=== PATIENT | female | born 1980 | race Caucasian/White ===

== ENCOUNTER 2016-10-03 08:23 | Emergency (ER) | payer BC ==
[2016-10-03] MEDS ORDERED: Ketorolac 30 MG/ML SDV IVPUSH ONE (08:33)
[2016-10-03] MEDS ORDERED: Ondansetron 4 MG/2 ML SDV IVPUSH ONE (08:33)
[2016-10-03] MEDS ORDERED: HYDROmorphone 2 MG/ML Syringe IVPUSH ONE (08:33)
[2016-10-03] MEDS ORDERED: Sodium Chloride 0.9% 1,000 ML IV ONE (08:33)
[2016-10-03] MEDS ORDERED: Tamsulosin 0.4 MG Cap.ER PO ONE (08:34)
--- NOTE | 2016-10-03 08:35 | EDM.PDOC ---
ED HPI GENERAL MEDICAL PROBLEM - General Chief Complaint: Genitourinary Problem Stated Complaint: LOWER BACK PAIN Time Seen by Provider: 10/03/16 08:32 - History of Present Illness INITIAL COMMENTS - FREE TEXT/NARRATIVE: HISTORY AND PHYSICAL: History of present illness: Patient 36-year-old white female concern of acute left flank pain similar to prior episode of urolithiasis years ago this awoke her from sleep she had mild nausea no vomiting no fever chills trauma or other complaints Review of systems: As per history of present illness and below otherwise all systems reviewed and negative. Past medical history: As per history of present illness and as reviewed below otherwise noncontributory. Surgical history: As per history of present illness and as reviewed below otherwise noncontributory. Social history: No reported history of drug or alcohol abuse. Family history: As per history of present illness and as reviewed below otherwise noncontributory. Physical exam: HEENT: Atraumatic, normocephalic, pupils reactive, negative for conjunctival pallor or scleral icterus, mucous membranes moist, throat clear, neck supple, nontender, trachea midline. Lungs: Clear to auscultation, breath sounds equal bilaterally, chest nontender. Heart: S1S2, regular, negative for clicks, rubs, or JVD. Abdomen: Soft, nondistended, nontender. Negative for masses or hepatosplenomegaly. Left-sided costovertebral tenderness. Pelvis: Stable nontender. Genitourinary: Deferred. Rectal: Deferred. Extremities: Atraumatic, negative for cords or calf pain. Neurovascular unremarkable. Neuro: Awake, alert, oriented. Cranial nerves II through XII unremarkable. Cerebellum unremarkable. Motor and sensory unremarkable throughout. Exam nonfocal. Diagnostics: CBC CMP UA urine culture CT abdomen and pelvis Therapeutics: Normal saline 1 L bolus Dilaudid 1 mg IV Zofran 4 mg IV Toradol 30 mg IV Flomax 0.4 mg by mouth Impression: #1 acute left CVA tenderness #2 history of urolithiasis Definitive disposition and diagnosis as appropriate pending reevaluation and review of above. Lower Flank Pain Score (Numeric/FACES): 10 - Related Data Allergies Allergy/AdvReac Type Severity Reaction Status Date / Time doxycycline Allergy thrush Verified 10/03/16 08:30 Sulfa (Sulfonamide Allergy Rash Verified 10/03/16 08:30 Antibiotics) Cats Allergy Cough Uncoded 10/03/16 08:30 latex sensitive Allergy Rash Uncoded 10/03/16 08:30 Home Meds: Home Meds . [No Known Home Meds] 10/03/16 [History] Past Medical History - Past Health History Medical/Surgical History: Denies Medical/Surgical History HEENT History: Reports: Allergic Rhinitis Other HEENT History: wears contacts or glasses, seasonal allergies Cardiovascular History: Reports: None Respiratory History: Reports: Asthma Other Respiratory History: seasonal asthma, does not require inhaler Gastrointestinal History: Reports: None Other Gastrointestinal History: Heartburn, indestion and burning abdomen right to middle side Genitourinary History: Reports: Pyelonephritis, Renal Calculus Other Genitourinary History: recent antibiotic treatment for UTI 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, Other OB/BYN History: Painful Menses Other Musculoskeletal History: Low back pain, hx: fracturing L Ankle Neurological History: Reports: Migraines Other Neuro History: Headaches/migraines Psychiatric History: Reports: None Endocrine/Metabolic History: Reports: Obesity/BMI 30+ Hematologic History: Reports: None Immunologic History: Reports: None Oncologic (Cancer) History: Reports: None Dermatologic History: Reports: None - Infectious Disease History Infectious Disease History: Reports: None - Past Surgical History Head Surgeries/Procedures: Reports: None HEENT Surgical History: Reports: Oral Surgery Female Surgical History: Reports: Hysterectomy Social & Family History - Family History Family Medical History: Noncontributory HEENT: Reports: Cataract Cardiac: Reports: Hypertension, [place] Respiratory: Reports: Asthma GI: Reports: Cholelithiasis : Reports: Dialysis, Renal Disease/Insufficiency OBGYN: Reports: Musculoskeletal: Reports: None Neurological: Reports: None Psychiatric: Reports: None Endocrine/Metabolic: Reports: Diabetes, type II, IDDM Hematologic: Reports: None Immunologic: Reports: None Dermatologic: Reports: None Oncologic: Reports: Liver - Tobacco Use Smoking Status *Q: Never Smoker Years of Tobacco use: 6 Used Tobacco, but Quit: Yes Second Hand Smoke Exposure: No - Caffeine Use Caffeine Use: Reports: Coffee, Soda Caffeine Use Comment: rarely - Alcohol Use Days Per Week of Alcohol Use: 1 Number of Drinks Per Day: 0 Total Drinks Per Week: 0 - Recreational Drug Use Recreational Drug Use: No Drug Use in Last 12 Months: No ED ROS GENERAL - Review of Systems Review Of Systems: ROS reveals no pertinent complaints other than HPI. ED EXAM, GENERAL - Physical Exam Exam: See Below (The dictation) Course - Vital Signs Last Recorded V/S: Last Vital Signs Temp 36.1 C 10/03/16 08:27 Pulse 58 L 10/03/16 09:50 Resp 18 10/03/16 09:50 BP 122/69 10/03/16 09:50 Pulse Ox 97 10/03/16 09:50 - Orders/Labs/Meds Orders: Active Orders 24 hr Category Date Time Status Abdomen Pelvis wo Cont [CT] Stat Exams 10/03/16 08:33 Ordered CULTURE URINE [RM] Stat Lab 10/03/16 08:32 Uncollected Labs: Laboratory Tests 10/03/16 10/03/16 10/03/16 Range/Units 08:42 08:42 09:20 WBC 12.81 H (4.0-11.0) K/uL RBC 4.44 (4.30-5.90) M/uL Hgb 13.4 (12.0-16.0) g/dL Hct 39.3 (36.0-46.0) % MCV 88.5 (80.0-98.0) fL MCH 30.2 (27.0-32.0) pg MCHC 34.1 (31.0-37.0) g/dL RDW Std Deviation 42.6 (28.0-62.0) fl RDW Coeff of Bebeto 13 (11.0-15.0) % Plt Count 218 (150-400) K/uL MPV 10.50 (7.40-12.00) fL Neut % (Auto) 76.1 (48.0-80.0) % Lymph % (Auto) 15.0 L (16.0-40.0) % Mower % (Auto) 5.4 (0.0-15.0) % Eos % (Auto) 2.9 (0.0-7.0) % Baso % (Auto) 0.6 (0.0-1.5) % Neut # (Auto) 9.8 H (1.4-5.7) K/uL Lymph # (Auto) 1.9 (0.6-2.4) K/uL Mower # (Auto) 0.7 (0.0-0.8) K/uL Eos # (Auto) 0.4 (0.0-0.7) K/uL Baso # (Auto) 0.1 (0.0-0.1) K/uL Nucleated RBC % 0.0 /100WBC Nucleated RBCs # 0 K/uL Sodium 140 (136-146) mmol/L Potassium 5.2 H (3.5-5.1) mmol/L Chloride 107 (98-110) mmol/L Carbon Dioxide 20 L (21-31) mmol/L BUN 19 (6.0-23.0) mg/dL Creatinine 1.1 (0.6-1.5) mg/dL Est Cr Clr Drug Dosing 64.84 mL/min Estimated GFR (MDRD) 56.9 ml/min Glucose 95 (60-110) mg/dL Calcium 9.2 (8.8-10.8) mg/dL Total Bilirubin 0.3 (0.1-1.5) mg/dL AST 25 (5-40) IU/L ALT 26 (8-54) IU/L Alkaline Phosphatase 79 (40-150) Total Protein 7.3 (6.0-8.0) g/dL Albumin 4.5 (3.5-5.0) g/dL Globulin 2.8 (2.0-3.5) g/dL Albumin/Globulin Ratio 1.6 (1.3-2.8) Urine Color YELLOW Urine Appearance SLT CLOUDY Urine pH 6.0 (5.0-8.0) Ur Specific Polk 1.020 (1.001-1.035) Urine Protein NEGATIVE (NEGATIVE) mg/dL Urine Glucose (UA) NEGATIVE (NEGATIVE) mg/dL Urine Ketones NEGATIVE (NEGATIVE) mg/dL Urine Occult Blood MODERATE (NEGATIVE) Urine Nitrite NEGATIVE (NEGATIVE) Urine Bilirubin NEGATIVE (NEGATIVE) Urine Urobilinogen 0.2 (<2.0) EU/dL Ur Leukocyte Esterase NEGATIVE (NEGATIVE) Urine RBC 3-6 (0-2/HPF) Urine WBC 0-2 (0-5/HPF) Ur Epithelial Cells RARE (NONE-FEW) Amorphous Sediment RARE (NEGATIVE) Urine Bacteria FEW (NEGATIVE) Meds: Medications Discontinued Medications Generic Name Dose Route Start Last Admin Trade Name Freq PRN Reason Stop Dose Admin Hydromorphone HCl 1 mg 10/03/16 08:33 10/03/16 08:51 Dilaudid IVPUSH 10/03/16 08:34 1 mg ONETIME ONE Administration Sodium Chloride 1,000 mls @ 999 mls/hr 10/03/16 08:33 10/03/16 08:51 Normal Saline IV 10/03/16 09:33 999 mls/hr STAT ONE Administration Ketorolac Tromethamine 30 mg 10/03/16 08:33 10/03/16 08:52 Toradol IVPUSH 10/03/16 08:34 30 mg ONETIME ONE Administration Ondansetron HCl 4 mg 10/03/16 08:33 10/03/16 08:51 Zofran IVPUSH 10/03/16 08:34 4 mg ONETIME ONE Administration Tamsulosin HCl 0.4 mg 10/03/16 08:34 10/03/16 08:52 Flomax PO 10/03/16 08:35 0.4 mg ONETIME ONE Administration Departure - Departure Time of Disposition: 09:51 Disposition: Home, Self-Care 01 Condition: good Clinical Impression: Ureterolithiasis - Discharge Information Forms: ED Department Discharge Additional Instructions: The following information is given to patients seen in the emergency department who are being discharged to home. This information is to outline your options for follow-up care. We provide all patients seen in our emergency department with a follow-up referral. The need for follow-up, as well as the timing and circumstances, are variable depending upon the specifics of your emergency department visit. If you don't have a primary care physician on staff, we will provide you with a referral. We always advise you to contact your personal physician following an emergency department visit to inform them of the circumstance of the visit and for follow-up with them and/or the need for any referrals to a consulting specialist. The emergency department will also refer you to a specialist when appropriate. This referral assures that you have the opportunity for followup care with a specialist. All of these measure are taken in an effort to provide you with optimal care, which includes your followup. Under all circumstances we always encourage you to contact your private physician who remains a resource for coordinating your care. When calling for followup care, please make the office aware that this follow-up is from your recent emergency room visit. If for any reason you are refused follow-up, please contact the [facility] emergency department at and asked to speak to the emergency department charge nurse. [facility] Special[facility] Care - Urology [address] [place] [id number] Hydrocodone Zofran Flomax as prescribed push fluids follow up primary medical doctor/urology above return as needed as discussed - My Orders Last 24 Hours: My Active Orders 10/03/16 08:32 CULTURE URINE [RM] Stat 10/03/16 08:33 Abdomen Pelvis wo Cont [CT] Stat - Assessment/Plan Last 24 Hours: My Active Orders 10/03/16 08:32 CULTURE URINE [RM] Stat 10/03/16 08:33 Abdomen Pelvis wo Cont [CT] Stat
[2016-10-03 10:15] VITALS: BP 120/80
--- NOTE | 2016-10-03 11:14 | CT ---
EXAM DATE: 10/03/16 PATIENT'S AGE: 36 Patient: JUAQUIN KERR Facility: [place], [place] Site . Site : 1980 Study: CT Abdomen/Pelvis [id number]/1/2017 9:23:08 AM Ordering Physician: Jordan Fan Final Report: INDICATION: Left flank pain that extends to the left front with associated left lower quadrant pain since 4 a.m. Technique: CT abdomen and pelvis without oral IV contrast. Comparison: Prior CT 07/04/2014 not available for comparison. Findings: Small sclerotic lesions in the skeleton consistent with small bone islands. 3 mm stone in the left UVJ resulting in mild hydronephrosis and ureteral dilatation as well as minimal perinephric and to lesser extent periureteral soft tissue stranding/edema consistent with this stone being partially obstructing. The left kidney is mildly edematous and larger than the right. Few tiny bilateral renal stones. Hysterectomy. The appendix is normal. Clusters of small to slightly prominent mesenteric lymph nodes should be reactive. Remainder negative. Impression: 1. 3 mm partially obstructing stone in the left UVJ results in mild hydronephrosis and other signs of ureteral obstruction as described above. 2. Very tiny bilateral renal calculi. 3. Hysterectomy. Other findings as above. Please note that all CT scans at this facility use dose modulation, iterative reconstruction, and/or weight-based dosing when appropriate to reduce radiation dose to as low as reasonably achievable. Dictated by Norman Aguilar MD @ Oct 03 2016 9:35AM (Electronic Signature) Report Signed by Proxy. MTDD
== END 2016-10-03 10:14 | disposition home or self-care (01) ==
LOC: MW.ED 08:23
DX: N13.2 Hydronephrosis with renal and ureteral calculous obstruction (principal); Z88.1 Allergy status to other antibiotic agents; Z88.2 Allergy status to sulfonamides; Z91.040 Latex allergy status; E66.9 Obesity, unspecified; Z90.710 Acquired absence of both cervix and uterus; Z87.891 Personal history of nicotine dependence
CPT/HCPCS: 36415; 74176; 80053; 81001; 85025; 87086; 96361; 96374; 96375; 99284; A9270; J1170; J1885; J2405; J7040

== ENCOUNTER 2017-03-26 15:54 | Emergency (ER) | payer BC ==
--- NOTE | 2017-03-26 16:11 | EDM.PDOC ---
ED HPI GENERAL MEDICAL PROBLEM - General Chief Complaint: Headache Stated Complaint: PAIN IN HEAD AND NECK Time Seen by Provider: 03/26/17 16:10 Source of Information: Reports: Patient History Limitations: Reports: No Limitations - History of Present Illness INITIAL COMMENTS - FREE TEXT/NARRATIVE: HISTORY AND PHYSICAL: [] 36-year-old female presenting with right-sided head pain. She has history of migraines but has never had a headache like this previously. She has pain rating down the right side of her neck to the shoulder. History of Present Illness: []This started last night while sitting on the couch no reported injury Review of Systems: As per history of present illness and below otherwise all systems reviewed and negative. Past medical history: As per history of present illness and as reviewed below otherwise noncontributory. Surgical history: As per history of present illness and as reviewed below otherwise noncontributory. Social history: No reported history of drug or alcohol abuse. Family history: As per history of present illness and as reviewed below otherwise noncontributory. Physical exam: Alert and oriented answering questions appropriately in full sentences without any shortness of breath. No neurological deficits were apparent. Slightly photophobic. HEENT: Atraumatic, normocehpalic, pupils reactive, negative for conjunctival pallor or scleral icterus, mucous membranes moist, throat clear, neck supple, nontender, trachea midline. Lungs: Clear to auscultation, breath sounds equal bilaterally, chest non tender. Heart: S1S2, regular, negative for clicks, rubs, or JVD. Abdomen: Soft, nondistended, nontender. Negative for masses or hepatossplenmegaly. Negative for costovertebral tenderness. Pelvis: Stable nontender. Genitourinary: Deferred. Rectal: Deferred Extremities: Atraumatic, negative for cords or calf pain. Neurovascular unremarkable. Neuro: Awake, alert, oriented. Cranial nerves II through XII unremarkable. Cerebellum unremarkable. Motor and sensory unremarkable throughout. Exam nonfocal. CT report shows small amount of fluid to the right mastoid. Discussed case with Dr. Ortega, who kindly reexamined the patient tenderness to the right mastoid area. No edema, nausea or vomiting. Have discussed this with the patient and her . Explaining, because of the small amount of fluid at the right mastoid, would like her to follow-up with the ENT specialist. Both the patient and her are agreeable to this recommended course of action Diagnostics: [Head CT] Therapeutics: [1 L fluid] Impression: [Cephalgia Headache] Plan: [Augmentin 875 twice a day 7 days Follow-up with ENT specialist referral has been made to Dr. Pelletier Any worsening of condition return to the emergency room for further evaluation.] Definitive disposition and diagnosis as appropriate pending reevaluation and review of above. Onset: Today, Sudden Location: Reports: Head Severity: Moderate head,neck Pain Score (Numeric/FACES): 7 - Related Data Allergies Allergy/AdvReac Type Severity Reaction Status Date / Time azithromycin [From Zithromax] Allergy Rash Verified 03/26/17 16:12 doxycycline Allergy thrush Verified 03/26/17 16:11 Sulfa (Sulfonamide Allergy Rash Verified 03/26/17 16:11 Antibiotics) Cats Allergy Cough Uncoded 03/26/17 16:11 latex sensitive Allergy Rash Uncoded 03/26/17 16:11 Home Meds: Home Meds Amoxicillin/Potassium Clav [Augmentin 875-125 Tablet] 1 each PO BID #14 tablet 03/26/17 [Rx] Estrogens, Conjugated [Premarin] 0.625 mg PO DAILY 03/26/17 [History] Past Medical History - Past Health History Medical/Surgical History: Denies Medical/Surgical History HEENT History: Reports: Allergic Rhinitis Other HEENT History: wears contacts or glasses, seasonal allergies Cardiovascular History: Reports: None Respiratory History: Reports: Asthma Other Respiratory History: seasonal asthma, does not require inhaler Gastrointestinal History: Reports: None Other Gastrointestinal History: Heartburn, indestion and burning abdomen right to middle side Genitourinary History: Reports: Pyelonephritis, Renal Calculus Other Genitourinary History: recent antibiotic treatment for UTI 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, Other OB/BYN History: Painful Menses Other Musculoskeletal History: Low back pain, hx: fracturing L Ankle Neurological History: Reports: Migraines Other Neuro History: Headaches/migraines Psychiatric History: Reports: None Endocrine/Metabolic History: Reports: Obesity/BMI 30+ Hematologic History: Reports: None Immunologic History: Reports: None Oncologic (Cancer) History: Reports: None Dermatologic History: Reports: None - Infectious Disease History Infectious Disease History: Reports: None - Past Surgical History Head Surgeries/Procedures: Reports: None HEENT Surgical History: Reports: Oral Surgery Female Surgical History: Reports: Hysterectomy Social & Family History - Family History Family Medical History: Noncontributory HEENT: Reports: Cataract Cardiac: Reports: Hypertension, [place] Respiratory: Reports: Asthma GI: Reports: Cholelithiasis : Reports: Dialysis, Renal Disease/Insufficiency OBGYN: Reports: Musculoskeletal: Reports: None Neurological: Reports: None Psychiatric: Reports: None Endocrine/Metabolic: Reports: Diabetes, type II, IDDM Hematologic: Reports: None Immunologic: Reports: None Dermatologic: Reports: None Oncologic: Reports: Liver - Tobacco Use Smoking Status *Q: Never Smoker Years of Tobacco use: 6 Used Tobacco, but Quit: Yes Second Hand Smoke Exposure: No - Caffeine Use Caffeine Use: Reports: Coffee, Soda Caffeine Use Comment: rarely - Alcohol Use Days Per Week of Alcohol Use: 1 Number of Drinks Per Day: 0 Total Drinks Per Week: 0 - Recreational Drug Use Recreational Drug Use: No Drug Use in Last 12 Months: No ED ROS GENERAL - Review of Systems Review Of Systems: ROS reveals no pertinent complaints other than HPI. - Physical Exam Exam: See Below (See dictation) Course - Vital Signs Last Recorded V/S: Last Vital Signs Temp 36.1 C 03/26/17 16:03 Pulse 65 03/26/17 16:03 Resp 16 03/26/17 16:03 BP 139/84 03/26/17 16:03 Pulse Ox 99 03/26/17 16:03 - Orders/Labs/Meds Orders: Active Orders 24 hr Category Date Time Status Head wo Cont [CT] Stat Exams 03/26/17 16:11 Taken Sodium Chloride 0.9% [Saline Flush] Med 03/26/17 16:12 Active 10 ml FLUSH ASDIRECTED PRN Sodium Chloride 0.9% [Saline Flush] Med 03/26/17 16:12 Active 2.5 ml FLUSH ASDIRECTED PRN Saline Lock Insert [OM.PC] Stat Oth 03/26/17 16:12 Ordered Medication Orders Sodium Chloride (Saline Flush) 10 ml FLUSH ASDIRECTED PRN PRN Reason: Keep Vein Open Last Admin: 03/26/17 16:33 Dose: 10 ml Sodium Chloride (Saline Flush) 2.5 ml FLUSH ASDIRECTED PRN PRN Reason: Keep Vein Open Last Admin: 03/26/17 16:34 Dose: 2.5 ml Meds: Medications Generic Name Dose Route Start Last Admin Trade Name Freq PRN Reason Stop Dose Admin Sodium Chloride 10 ml 03/26/17 16:12 03/26/17 16:33 Saline Flush FLUSH 10 ml ASDIRECTED PRN Administration Keep Vein Open Sodium Chloride 2.5 ml 03/26/17 16:12 03/26/17 16:34 Saline Flush FLUSH 2.5 ml ASDIRECTED PRN Administration Keep Vein Open Discontinued Medications Generic Name Dose Route Start Last Admin Trade Name Freq PRN Reason Stop Dose Admin Diphenhydramine HCl 25 mg 03/26/17 17:37 03/26/17 17:58 Benadryl IVPUSH 03/26/17 17:38 25 mg ONETIME ONE Administration Sodium Chloride 1,000 mls @ 999 mls/hr 03/26/17 16:12 03/26/17 16:34 Normal Saline IV 03/26/17 17:12 999 mls/hr STAT ONE Administration Ketorolac Tromethamine 30 mg 03/26/17 17:36 03/26/17 17:58 Toradol IVPUSH 03/26/17 17:37 30 mg ONETIME ONE Administration Prochlorperazine Edisylate 10 mg 03/26/17 17:37 03/26/17 17:58 Compazine IM 03/26/17 17:38 10 mg ONETIME ONE Administration Departure - Departure Time of Disposition: 18:28 Disposition: Home, Self-Care 01 Condition: Good Clinical Impression: Sinusitis Headache Qualifiers: Headache type: unspecified Headache chronicity pattern: acute headache Intractability: not intractable Qualified Code(s): R51 - Headache - Discharge Information Prescriptions: Amoxicillin/Potassium Clav [Augmentin 875-125 Tablet] 1 each PO BID #14 tablet Referrals: PCP,None [Primary Care Provider] - Forms: ED Department Discharge Additional Instructions: The following information is given to patients seen in the emergency department who are being discharged to home. This information is to outline your options for follow-up care. We provide all patients seen in our emergency department with a follow-up referral. The need for follow-up, as well as the timing and circumstances, are variable depending upon the specifics of your emergency department visit. If you don't have a primary care physician on staff, we will provide you with a referral. We always advise you to contact your personal physician following an emergency department visit to inform them of the circumstance of the visit and for follow-up with them and/or the need for any referrals to a consulting specialist. The emergency department will also refer you to a specialist when appropriate. This referral assures that you have the opportunity for followup care with a specialist. All of these measure are taken in an effort to provide you with optimal care, which includes your followup. Under all circumstances we always encourage you to contact your private physician who remains a resource for coordinating your care. When calling for followup care, please make the office aware that this follow-up is from your recent emergency room visit. If for any reason you are refused follow-up, please contact the [facility] emergency department at and asked to speak to the emergency department charge nurse. Augmentin 875 one twice a day 7 days has been prescribed for you per [facility] Follow-up with ENT specialist Dr. Pelletier [facility] [address] [place] [phone] Phone: If worsening of symptoms or occurs over this holiday weekend please return to the emergency room for further evaluation - My Orders Last 24 Hours: My Active Orders 03/26/17 16:11 Head wo Cont [CT] Stat 03/26/17 16:12 Sodium Chloride 0.9% [Saline Flush] 10 ml FLUSH ASDIRECTED PRN Sodium Chloride 0.9% [Saline Flush] 2.5 ml FLUSH ASDIRECTED PRN Saline Lock Insert [OM.PC] Stat - Assessment/Plan Last 24 Hours: My Active Orders 03/26/17 16:11 Head wo Cont [CT] Stat 03/26/17 16:12 Sodium Chloride 0.9% [Saline Flush] 10 ml FLUSH ASDIRECTED PRN Sodium Chloride 0.9% [Saline Flush] 2.5 ml FLUSH ASDIRECTED PRN Saline Lock Insert [OM.PC] Stat
[2017-03-26] MEDS ORDERED: Sodium Chloride 0.9% 10 ML Syringe FLUSH PRN (16:12)
[2017-03-26] MEDS ORDERED: Sodium Chloride 0.9% 2.5 ML Syringe FLUSH PRN (16:12)
[2017-03-26] MEDS ORDERED: Sodium Chloride 0.9% 1,000 ML IV ONE (16:12)
[2017-03-26] MEDS ORDERED: Ketorolac 30 MG/ML SDV IVPUSH ONE (17:36)
[2017-03-26] MEDS ORDERED: Prochlorperazine 10 MG/2 ML SDV IM ONE (17:37)
[2017-03-26] MEDS ORDERED: diphenhydrAMINE 50 MG/ML SDV IVPUSH ONE (17:37)
[2017-03-26 18:52] VITALS: BP 130/86
--- NOTE | 2017-03-28 11:18 | CT ---
EXAM DATE: 03/26/17 PATIENT'S AGE: 36 Patient: JUAQUIN KERR Facility: [place], [place] Site . Site : 1980 Study: CT Head [id number] 5:11:48 PM Ordering Physician: Doctor Lackey Final Report: HISTORY: Pain, right facial tingling. TECHNIQUE: The head was scanned in the axial plane at 3 mm intervals without IV contrast. Reconstructed bone windows were obtained as well as sagittal and coronal reconstructions. FINDINGS: A 1.3 cm because retention cyst or polyp is seen the right sphenoid sinus. There is trace fluid seen within the right mastoid air cells. The calvarium is intact. The globes and orbital contents are symmetric. The ventricles and sulci are normal size, shape and position. No intra-axial mass, edema or midline shift is identified. No extra-axial fluid collections are seen. Silvestre-white differentiation is preserved. IMPRESSION: 1. 1.3 cm because retention cyst or polyp in the right sphenoid sinus. 2. Trace right mastoid effusion. 3. No acute intracranial pathology or bleed. Dictated by Anum Moulton MD @ 03/26/2017 6:15:13 PM Dictated by: Anum Moulton MD @ 03/26/2017 18:15:25 (Electronic Signature) Report Signed by Proxy. [facility]ITAL[facility]ina
== END 2017-03-26 18:56 | disposition home or self-care (01) ==
LOC: MW.ED 15:54
DX: J32.9 Chronic sinusitis, unspecified (principal); Z88.1 Allergy status to other antibiotic agents; Z88.2 Allergy status to sulfonamides; Z91.040 Latex allergy status; Z79.899 Other long term (current) drug therapy
CPT/HCPCS: 70450; 96361; 96372; 96374; 96375; 99284; J0780; J1200; J1885; J7040; 99283